=== PATIENT | male | born 1960 | race Caucasian/White ===

== ENCOUNTER → 2017-03-05 | Outpatient (CLI) | payer OTHER ==
--- NOTE | 2017-03-05 17:13 | PCVCIMAG ---
APPROVED REPORT Study performed: 03/05/2017 13:14:30 EXAM: Comprehensive 2D, Doppler, and color-flow Echocardiogram Patient Location: Echo lab Status: routine Other Information Study Quality: Adequate Risk Factors: Cardiac Risk Factors: HTN, Hyperlipidemia, DM Indications Prosthetic Valve Atrial Fibrillation #25 [facility] Aortic Valve; #29 [facility] Mitral Valve 2D Dimensions IVSd: 16.26 (7-11mm)LVOT Diam: 25.00 (18-24mm) LVDd: 56.60 mm PWd: 19.55 (7-11mm)Ascending Ao: 35.03 (22-36mm) LVDs: 31.61 (25-40mm) Aortic Root: 30.52 mm LV Single Plane 4CH: 66.31 % [facility] LVEF: 74.76 % Volumes Left Atrial Volume (Systole) Single Plane 4CH: 83.30 mLSingle Plane 2CH: 82.22 mL LA ESV Index: 37.00 mL/m2 Aortic Valve AoV Peak Landon.: 2.95 m/s AO Peak Gr.: 34.85 mmHgLVOT Max P.24 mmHg AO Mean Gr.: 21.74 mmHgLVOT Mean P.14 mmHg AO V2 Mean: 2.23 m/sLVOT Max V: 1.03 m/s AO V2 VTI: 63.92 cmLVOT Mean V: 0.67 m/s LIDA (VTI): 1.66 [id number] V1 VTI: 21.25 cm LIDA Vmax: 1.74 cm2 SV (LVOT): 105.81 mL Mitral Valve MV Peak Gr.: 24.27 mmHg MV Mean Gr.: 6.72 mmHg MV Max Landon.: 2.46 m/s MV Mean Landon.: 1.11 m/s MV VTI: 641.66 mm MVA VTI: 164.90 mm2 MV PHT: 110.48 ms MVA (PHT): 1.99 cm2 Pulmonary Valve PV Peak Gr.: 2.51 mmHg Tricuspid Valve RAP Estimate: 7.00 mmHg Left Ventricle Left ventricle is at the upper limits of normal. There is normal LV segmental wall motion. Mild to moderate concentric left ventricular hypertrophy. Left ventricular systolic function is normal. LVEF is 60-65%. This study is not technically sufficient to allow evaluation of the LV diastolic function due to atrial fibrillation. Right Ventricle The right ventricle is normal size. The right ventricular systolic function is normal. Atria Left atrium is mildly dilated. Right atrium is mildly dilated. Aortic Valve prosth valve mechanical aortic position Normal functioning #25 [facility] Aortic Valve. No aortic regurgitation is present. There is no aortic valvular stenosis. Mitral Valve prosth valve mechanical mitral position Normal functioning #29 [facility] Mitral Valve. There is no mitral valve regurgitation noted. No evidence of mitral valve stenosis. Tricuspid Valve The tricuspid valve is normal in structure. There is no tricuspid valve regurgitation noted. Pulmonic Valve The pulmonary valve is normal in structure. There is no pulmonic valvular regurgitation. Great Vessels The aortic root is normal in size. IVC is normal in size and collapses with >50% inspiration Pericardium There is no pericardial effusion. <Conclusion> Left ventricle is at the upper limits of normal. Mild to moderate concentric left ventricular hypertrophy. LVEF is 60-65%. This study is not technically sufficient to allow evaluation of the LV diastolic function due to atrial fibrillation. The right ventricle is normal size. Left atrium is mildly dilated. Right atrium is mildly dilated. prosth valve mechanical There is no mitral valve regurgitation noted. prosth valve mechanical There is no aortic valvular stenosis. The aortic root is normal in size. There is no pericardial effusion. prosth valve mechanical mitral position prosth valve mechanical aortic position
== END | disposition home or self-care (01) ==
LOC: PCVCIMAG 13:03
PROVIDERS: ATTEND Internal Medicine Cardiovascular Disease
DX: I51.7 Cardiomegaly (principal); I48.2 Chronic atrial fibrillation; I48.92 Unspecified atrial flutter; I87.2 Venous insufficiency (chronic) (peripheral); I87.329 Chronic venous hypertension (idiopathic) with inflammation of unspecified lower extremity; E78.00 Pure hypercholesterolemia, unspecified; E78.1 Pure hyperglyceridemia; Z96.651 Presence of right artificial knee joint; Z95.2 Presence of prosthetic heart valve; Z96.641 Presence of right artificial hip joint; Z79.01 Long term (current) use of anticoagulants; Z79.899 Other long term (current) drug therapy
CPT/HCPCS: 80061; 93005; 93306; G0463

== ENCOUNTER → 2018-04-15 | Outpatient (CLI) | payer OTHER ==
--- NOTE | 2018-04-15 15:10 | PCVCIMAG ---
APPROVED REPORT Study performed: 04/15/2018 13:16:54 EXAM: Comprehensive 2D, Doppler, and color-flow Echocardiogram Patient Location: Echo lab Status: routine BSA: 2.32 HR: 56 bpmBP: 120/80 mmHg Rhythm: Atrial Fibrillation Other Information Study Quality: Adequate Risk Factors: Cardiac Risk Factors: HTN, Hyperlipidemia Indications Atrial Fibrillation [facility] and Mitral Val[facility] Replacements. 2D Dimensions LVEF(%): 43.14 (>50%) IVSd: 14.17 (7-11mm)LVOT Diam: 24.81 (18-24mm) LVDd: 60.88 mm PWd: 16.42 (7-11mm)Ascending Ao: 36.31 (22-36mm) LVDs: 47.67 (25-40mm) Left Atrium: 55.36 (27-40mm) Aortic Root: 28.81 mm LV Single Plane 4CH: 54.14 % LV Single Plane 2CH: 43.09 %Moody's LVEF: 48.62 % Biplane EF: 48.1 % Volumes Left Atrial Volume (Systole) Single Plane 4CH: 83.76 mLSingle Plane 2CH: 122.46 mL LA ESV Index: 45.00 mL/m2 Aortic Valve AoV Peak Landon.: 3.09 m/s AO Peak Gr.: 38.24 mmHgLVOT Max P.36 mmHg AO Mean Gr.: 20.70 mmHgLVOT Mean P.11 mmHg AO V2 Mean: 2.13 m/sLVOT Max V: 1.16 m/s AO V2 VTI: 62.61 cmLVOT Mean V: 0.84 m/s LIDA (VTI): 1.96 [id number] V1 VTI: 25.38 cm LIDA Vmax: 1.81 cm2 SV (LVOT): 122.68 mL Mitral Valve MV Decel. Time: 394.82 ms MV PHT: 123.55 ms MVA (PHT): 1.78 cm2 Pulmonary Valve PV Peak Gr.: 3.73 mmHg Left Ventricle Left ventricle is mildly dilated. There is normal LV segmental wall motion. Mild concentric left ventricular hypertrophy. Left ventricular systolic function is normal. The left ventricular ejection fraction is within the normal range. LVEF is 55-60%. This study is not technically sufficient to allow evaluation of the LV diastolic function due to atrial fibrillation. Right Ventricle The right ventricle is normal size. The right ventricular systolic function is normal. Atria Left atrium is moderately dilated. Right atrium is dilated. Aortic Valve #25 [facility] mechanical Valve. No aortic regurgitation is present. Peak gradient is 38mmhg. Mean gradient 21mmhg. Valve area is calculated at 1.8cm2. Mitral Valve #29 [facility] Mitral Valve Replacement. There is no mitral valve regurgitation noted. Mitral Valve Area calculated at 1.8cm2. Tricuspid Valve The tricuspid valve is normal in structure. There is no tricuspid valve regurgitation noted. Pulmonic Valve The pulmonary valve is normal in structure. There is no pulmonic valvular regurgitation. Great Vessels The aortic root is normal in size. IVC is normal in size and collapses with >50% inspiration Pericardium There is no pericardial effusion. <Conclusion> Left ventricle is mildly dilated. Mild concentric left ventricular hypertrophy. LVEF is 55-60%. This study is not technically sufficient to allow evaluation of the LV diastolic function due to atrial fibrillation. The right ventricle is normal size. Left atrium is moderately dilated. Right atrium is dilated. #25 [facility] mechanical Valve. Peak gradient is 38mmhg. Mean gradient 21mmhg. Valve area is calculated at 1.8cm2. No aortic regurgitation is present. #29 [facility] [facility] Mitral Valve Replacement. There is no mitral valve regurgitation noted. Mitral Valve Area calculated at 1.8cm2. There is no tricuspid valve regurgitation noted. The aortic root is normal in size. There is no pericardial effusion.
== END | disposition home or self-care (01) ==
LOC: PCVCIMAG 13:32
PROVIDERS: ATTEND Internal Medicine Cardiovascular Disease
DX: I48.91 Unspecified atrial fibrillation (principal); I10 Essential (primary) hypertension; E78.5 Hyperlipidemia, unspecified
CPT/HCPCS: 93306

== ENCOUNTER → 2018-11-21 | Outpatient (CLI) | payer OTHER ==
--- NOTE | 2018-11-21 14:53 | PCVCIMAG ---
EXAM: BILATERAL SUPERFICIAL VENOUS DUPLEX INDICATION: Leg pain and swelling. FINDINGS: Right leg: No thrombus in the common femoral, main femoral, or popliteal veins. These veins are compressible. Right Great Saphenous Vein: At the saphenofemoral junction the diameter is 7.3 mm, in the mid thigh it is 7.5 mm, and in the calf it is 6.4 mm. There is not significant venous insufficiency/reflux throughout. Venous insufficiency/reflux duration is 0.3 seconds. Right Small Saphenous Vein: At the saphenopopliteal junction the diameter is 5.5 mm, and in the calf it is 6.6 mm. There is significant venous insufficiency/reflux throughout. Venous insufficiency/reflux duration is 3.1 seconds. There is not a cranial extension present. Left leg: No thrombus in the common femoral, main femoral, or popliteal veins. These veins are compressible. Left Great Saphenous Vein: At the saphenofemoral junction the diameter is 8.1 mm, in the mid thigh it is 6.5 mm, and in the calf it is 5.8. mm. There is not significant venous insufficiency/reflux throughout. Venous insufficiency/reflux duration is 0.2 seconds. Left Small Saphenous Vein: At the saphenopopliteal junction the diameter is 5.1 mm, and in the calf it is 5.2 mm. There is not significant venous insufficiency/reflux throughout. Venous insufficiency/reflux duration is 0 seconds. There is not a cranial extension present. IMPRESSION: Right Great Saphenous Vein: No significant venous insufficiency/reflux is present as noted above. Right Small Saphenous Vein: Significant venous insufficiency/reflux is present as noted above. Left Great Saphenous Vein: No significant venous insufficiency/reflux is present as noted above. Left Small Saphenous Vein: No significant venous insufficiency/reflux is present as noted above. If patient has significant leg swelling consideration for intravascular ultrasound evaluation of the pelvic veins may be of value. LOC:[id number]
== END | disposition home or self-care (01) ==
LOC: PCVCIMAG 09:51
PROVIDERS: ATTEND Internal Medicine Cardiovascular Disease
DX: I87.2 Venous insufficiency (chronic) (peripheral) (principal); M79.89 Other specified soft tissue disorders
CPT/HCPCS: 93970

== ENCOUNTER → 2019-02-17 | Outpatient (CLI) | payer OTHER ==
--- NOTE | 2019-02-17 17:31 | PCVCIMAG ---
APPROVED REPORT Study performed: 02/17/2019 08:43:40 EXAM: Comprehensive 2D, Doppler, and color-flow Echocardiogram Patient Location: Echo lab Status: routine BSA: 2.33 HR: 58 bpmBP: 140/76 mmHg Rhythm: A-flutter, Bradycardia Other Information Study Quality: Adequate Indications #25 [facility] mechanical Aortic Valve Replacement, #29mm [facility] mechanical mitral valve replacement, A-Flutter 2D Dimensions IVSd: 17.84 (7-11mm)LVOT Diam: 25.19 (18-24mm) LVDd: 54.06 mm PWd: 18.23 (7-11mm)Ascending Ao: 35.64 (22-36mm) LVDs: 44.63 (25-40mm) Left Atrium: 51.40 (27-40mm) Aortic Root: 36.36 mm LV Single Plane 4CH: 56.46 % LV Single Plane 2CH: 48.65 % Volumes Left Atrial Volume (Systole) Single Plane 4CH: 133.71 mLSingle Plane 2CH: 184.46 mL LA ESV Index: 70.00 mL/m2 Aortic Valve AoV Peak Landon.: 3.13 m/s AO Peak Gr.: 39.20 mmHgLVOT Max P.88 mmHg AO Mean Gr.: 17.04 mmHgLVOT Mean P.36 mmHg AO V2 Mean: 1.84 m/sLVOT Max V: 1.31 m/s AO V2 VTI: 66.83 cmLVOT Mean V: 0.84 m/s LIDA (VTI): 2.29 [id number] V1 VTI: 30.67 cm LIDA Vmax: 2.09 cm2 SV (LVOT): 152.80 mL Mitral Valve MV Peak Gr.: 26.93 mmHg MV Mean Gr.: 7.76 mmHg MV Max Landon.: 2.59 m/s MV Mean Landon.: 1.17 m/s MV VTI: 687.83 mm MVA VTI: 222.15 mm2 MV PHT: 115.26 ms MVA (PHT): 1.91 cm2 Pulmonary Valve PV Peak Landon.: 1.43 m/sPV Peak Gr.: 8.20 mmHg Tricuspid Valve TR Peak Landon.: 3.19 m/s TR Peak Gr.: 40.61 mmHg Left Ventricle The left ventricle is normal size. There is normal LV segmental wall motion. Moderate to severe concentric left ventricular hypertrophy. Left ventricular systolic function is borderline lower limits of normal. LVEF is 50%. This study is not technically sufficient to allow evaluation of the LV diastolic function due to atrial flutter. Right Ventricle The right ventricle is normal size. The right ventricular systolic function is normal. Atria Left atrium is severely dilated. Right atrium is severely dilated. Aortic Valve Normally functioning #25 [facility] mechanical valve in the aortic position. Mild aortic regurgitation. There is no significant aortic valve stenosis. Calculated aortic valve area is 2.1 cm2 with maximum pressure gradient of 39 mmHg and mean pressure gradient of 17 mmHg. Mitral Valve Mechanical #29 [facility] valve in the mitral position. Trace mitral regurgitation. Mild to moderate mitral stenosis. Calculated mitral valve area is 1.9 cm2 with maximum pressure gradient of 27 mmHg and mean pressure gradient of 7.8 mmHg. Tricuspid Valve The tricuspid valve is normal in structure. Mild to moderate tricuspid regurgitation with PAP of 51 mmHg. Pulmonic Valve The pulmonary valve is normal in structure. Trace pulmonic regurgitation. Great Vessels The aortic root is normal in size. IVC is dilated and collapses >50% with inspiration. Pericardium There is no pericardial effusion. There is no pleural effusion. <Conclusion> The left ventricle is normal size. Moderate to severe concentric left ventricular hypertrophy. LVEF is 50%. This study is not technically sufficient to allow evaluation of the LV diastolic function due to atrial flutter. The right ventricle is normal size. Left atrium is severely dilated. Right atrium is severely dilated. Normally functioning #25 [facility] mechanical valve in the aortic position. Mild aortic regurgitation. There is no significant aortic valve stenosis. Calculated aortic valve area is 2.1 cm2 with maximum pressure gradient of 39 mmHg and mean pressure gradient of 17 [address] Mechanical #29 [address] [facility] valve in the mitral position. Trace mitral regurgitation. Mild to moderate mitral stenosis. Calculated mitral valve area is 1.9 cm2 with maximum pressure gradient of 27 mmHg and mean pressure gradient of 7.8 mmHg. Mild to moderate tricuspid regurgitation with PAP of 51 mmHg. The aortic root is normal in size. There is no pericardial effusion.
== END | disposition home or self-care (01) ==
LOC: PCVCIMAG 08:51
PROVIDERS: ATTEND Internal Medicine Cardiovascular Disease
DX: I08.3 Combined rheumatic disorders of mitral, aortic and tricuspid valves (principal); I48.92 Unspecified atrial flutter; Z95.2 Presence of prosthetic heart valve
CPT/HCPCS: 93306